=== PATIENT | female | born 1970 | race Caucasian/White ===

== ENCOUNTER 2019-08-01 09:40 | Emergency (ER) | payer BC, OTHER ==
[2019-08-01] MEDS ORDERED: Famotidine 20 MG Tab PO ONE (10:00)
[2019-08-01] MEDS ORDERED: diphenhydrAMINE 50 MG Cap PO ONE (10:00)
[2019-08-01] MEDS ORDERED: predniSONE 10 MG Tab PO ONE (10:00)
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
== END 2019-08-01 10:45 | disposition home or self-care (01) ==
LOC: JD.ED 09:40
DX: T63.441A Toxic effect of venom of bees, accidental (unintentional), initial encounter (principal); Z88.6 Allergy status to analgesic agent; Z88.5 Allergy status to narcotic agent; Z87.891 Personal history of nicotine dependence; E66.9 Obesity, unspecified; Z68.36 Body mass index [BMI] 36.0-36.9, adult; Z79.899 Other long term (current) drug therapy
CPT/HCPCS: 99282; A9270; J7512; 99283